=== PATIENT | male | born 1940 | race Caucasian/White ===

== ENCOUNTER 2018-06-07 14:40 | Emergency (ER) | payer MEDICARE, OTHER ==
[~2018-06-07] VITALS: Ht 182.9 cm; Wt 83.0 kg
[2018-06-07 14:49] VITALS: BP 124/73
== END 2018-06-07 16:02 | disposition home or self-care (01) ==
LOC: ER 14:40
DX: J20.9 Acute bronchitis, unspecified (principal); F17.210 Nicotine dependence, cigarettes, uncomplicated
CPT/HCPCS: 99281; 99406